=== PATIENT | male | born 1960 | race Caucasian/White ===

== ENCOUNTER 2018-10-23 15:22 | Inpatient (IN) ==
[2018-10-23] MEDS ORDERED: LABETALOL IV ONE (16:36)
[2018-10-23] MEDS ORDERED: APRESOLINE IV ONE (16:36)
[2018-10-23 17:03] LABS: BASO# 0.12 X1000 (0.0-0.2); BASO% 1.1 % (0.0-0.8); HEMOGLOBIN 15.3 g/dL (14.0-18.0); IMM GRAN# 0.03 X1000 (0.0-0.04); IMM GRAN% 0.3 % (0.0-0.5); LYMPH# 4.48 X1000 (1.2-3.4); LYMPH% 39.9 % (20.5-51.1); MCH 30.5 PG (27-31); MCV 89.6 FL (81-99); MONO# 0.69 X1000 (0.11-0.59); MONO% 6.1 % (1.7-9.3); MPV 12.3 FL (7.4-10.4); NEUT# 5.01 X1000 (1.4-6.5); NEUT% 44.6 % (42.2-75.2); PLT 151 X1000 (130-400); RBC 5.02 XMIL (4.7-6.1); RDW 14.7 % (11.5-14.5); WBC 11.23 X1000 (4.8-10.8)
[2018-10-23 17:18] LABS: AGAP 11; ALB/GLOB RATIO 1.9; ALBUMIN 4.6 g/dL (3.5-5.0); ALKALINE PHOSPHATASE 89 U/L (32-122); BUN 16 mg/dL (8-22); CHLORIDE 102 mmol/L (98-107); COSMO 269; ESTIMATED GFR > 60; GLUCOSE 83 mg/dL (70-104); GOT 17 U/L (10-34); GPT 10 U/L (10-44); POTASSIUM 4.5 mmol/L (3.5-5.1); SODIUM 134 mmol/L (136-145); TCO2 21 mmol/L (25-35); TOTAL BILIRUBIN 0.38 mg/dL (0.20-1.00)
[2018-10-23] MEDS ORDERED: NORCO-10 PO ONE (18:21)
[2018-10-23] MEDS ORDERED: CATAPRES PO ONE (18:21)
--- NOTE | 2018-10-23 18:23 | PROVIDER DOCUMENTATION ---
This chart was entered by Miriam Arias Scribe, acting as scribe for Rick Figueroa MD. HPI-General Adult - General Chief Complaint: B/P Problems Stated Complaint: HIGH BP Time Seen by Provider: 10/23/18 16:11 Source: patient, family (sister) Allergies/Adverse Reactions: Patient Allergies Allergy/AdvReac Type Severity Reaction Status Date / Time No Known Allergies Allergy Verified 10/23/18 15:54 Home Medications: Home Medication List Medication Instructions Recorded Confirmed Last Taken Type Albuterol Sulfate [Albuterol 10/23/18 Unknown History Sulfate Hfa] Alprazolam 10/23/18 10/22/18 History Citalopram [Celexa] 10/23/18 10/23/18 History Fluticasone 50 Mcg Nasal [place] 10/23/18 10/22/18 History [Flonase] Hydrocodone/APAP 10 mg/325 mg 10/23/18 10/22/18 History [[place]-10] LISINOpril [Prinivil] 10/23/18 10/23/18 History Quetiapine Fumarate 10/23/18 10/22/18 History Silodosin 10/23/18 10/22/18 History - History of Present Illness -Gen Adult Nature of Presenting Problems: 58 yowf presents to the ed with c/o elevated BP 217/135 this morning and still elevated on exam. pt has taken 120mg of Lisinopril since 0800am this morning. pt sts was seen yesterday at [facility] and still BP is elevated. pt on exam is anxious and tearful and sts "I just feel bad" Location of Pain/Injury: reports: generalized ("just feel bad") Quality of Pain: reports: aching Severity: reports: mild Onset/Duration: reports: 24 hours ago Timing: reports: still present Context/Activities at Onset: reports: light activity Modifying Factors: improves with: nothing Associated Symptoms: reports: fatigue, malaise. denies: back/neck pain, chest pain, cough, diaphoresis, diarrhea, dizziness, fever/chills, muscle aches, nausea, shortness of breath, syncope, vomiting, weakness Similar Symptoms Previously?: Yes (takes med for HTN) Recently seen or treated by another doctor?: Yes (susi ed yesterday) Review of Systems - Adult - REVIEW OF SYSTEMS - ADULT Constitutional: reports: see SPIKE esperanza Eyes: reports: no symptoms reported Ears, Nose, Mouth & Throat: reports: no symptoms reported Cardiovascular: denies: chest pain, palpitations Respiratory: denies: cough, shortness of breath, wheezing Gastrointestinal: denies: abdominal pain, diarrhea, nausea, vomiting Genitourinary: reports: no symptoms reported Musculoskeletal: denies: back pain, neck pain Integumentary: reports: no symptoms reported Neurological: denies: dizziness/vertigo, headache/migraines Psychiatric: reports: no symptoms reported Endocrine: reports: no symptoms reported Hematologic/Lymphatic: reports: no symptoms reported Allergic/Immunologic: reports: no symptoms reported All Other Systems: Reviewed and Negative Past History - Adult - PAST MEDICAL HISTORY-ADULT Review of Records: reports: Nursing Assessment Review, Medications Reviewed Major Childhood Illnesses: reports: other (Hep C) Cardiovascular: reports: HTN, hyperlipidemia Respiratory: reports: denies history Gastrointestinal: reports: denies history Genitourinary: reports: kidney disease, other (enlarged prostate) Musculoskeletal: reports: chronic pain, other (cervical fusion) Neurological: reports: denies history Psychiatric: reports: depression Endocrine/Immune: reports: denies history Other Conditions: reports: denies history - PRIOR SURGERIES/PROCEDURES Surgical/Procedure History: reports: joint replacement - IMMUNIZATION STATUS Childhood Immunizations: See Nurse Assessment Flu Vaccine: See Nurse Assessment - FAMILY HISTORY Family History: reviewed, not pertinent - SOCIAL HISTORY Smoking: cigarettes, greater than 1 pack/day Provider spent 3-5 mins advising pt. on dangers of tobacco.: Discussed manners to quit use, and f/u contacts for add'l counseling. Substance Use: denies Alcohol Use Frequency: never Living Situation: family Physical Exam-General - PHYSICAL EXAM-ADULT Exam Limited by: BP 223/139 Initial Vital Signs Reviewed: Yes - CONSTITUTIONAL General Appearance: appears well, alert, no apparent distress, obese, anxious - EYES Eyes: PERRL/EOMI, pink conjunctivae - HEAD, EARS, NOSE, MOUTH & THROAT HENMT: moist mucous membranes, TMs normal, other (no teeth) - NECK Neck: non-tender, full range of motion, normal inspection - RESPIRATORY Respiratory: chest non-tender, lungs clear, normal breath sounds - CARDIOVASCULAR Cardiovascular: normal peripheral pulses, regular rate, rhythm - GASTROINTESTINAL (ABDOMEN) Abdominal Exam: normal bowel sounds, non tender, soft, no organomegaly, no pulsatile mass - LYMPHATIC Lymphatic: no adenopathy - MUSCULOSKELETAL Back Exam: normal inspection, no CVA tenderness, no vertebral tenderness Extremity: normal range of motion, non-tender, normal gait, normal inspection, no pedal edema, no calf tenderness, normal capillary refill, pelvis stable, other (well healed scar on left knee) - SKIN Integumentary: normal color, normal turgor, warm/dry - NEUROLOGIC Neurologic: grossly normal, no motor/sensory deficits - PSYCHIATRIC Psych/Mental Status: normal mood/affect, normal thought content, normal thought process, oriented x 3, anxious Progress - PLAN OF CARE/RESULTS Progress/Plan/Lab Results: Vital Signs - 8 hr 10/23/18 15:31 Temperature 97.8 F Pulse Rate 74 Respiratory Rate 20 Blood Pressure 223/139 O2 Sat by Pulse Oximetry 97 Orders Category Date Time Status EKG [EKG] Stat Ther 10/23/18 15:26 Ordered Result Diagrams: 10/23/18 16:15 10/23/18 16:15 - REASSESSMENT Reassessment #1 Time Reassessed: 18:22 Status: improving (BP much improved; contrary to his report his renal fx is normal. pt insisting upon [place] 10 for his TALAMANTES, states he takes them tid. will give this, oral Clonidine, d/c for PCP fu.) - EKG 1 Time of EKG reading by physician:: 15:27 EKG Read and Signed by:: Rick Figueroa EKG Interpretation (*Must complete 3 of following elements*): Abnormal Rate: 72 Rhythm: nsr Irons: normal QRS: RBB (incomplete) NC Interval: normal ST Wave: normal Comments: septal infarct, ageundetermined Departure - Departure Date of Disposition Decision: 10/23/18 Time of Disposition Decision: 18:23 DIAGNOSIS: Hypertensive urgency, Tobacco use disorder Disposition: HOME 01 Certified Medical Emergency: Emergent Condition: Stable Referrals and Follow-Ups: None,PCP [Primary Care Provider] - - Critical Care Note This patient required my direct & personal management of CC.: Yes Total Time (mins): 34 Critical Care Statement: This patient required my direct personal management to treat or rule out processes, the absence of which, could potentiallly result in sudden, clinically significant life or limb threatening deterioration. Attestation - Physician/ RAMIN Attestation Patient care was provided by Advanced Practice Provider:: No The physician spent face to face time with patient:: Yes Advanced Practice Provider documentation review:: Supervising physician onsite and consulted in the evaluation and care of this patient. The physician did have a face to face encounter with the patient. This chart was documented by the indicated scribe, (Miriam Arias Scribe) and accurately reflects the services I performed and decisions made by me, Rick Figueroa MD, as attested by the provider's signature.
[2018-10-23] MEDS ORDERED: DILAUDID IV ONE (20:36)
[2018-10-23] MEDS ORDERED: ZOFRAN IV ONE (20:37)
[2018-10-23] MEDS ORDERED: NICODERM PATCH TD ONE (22:10)
[2018-10-23] MEDS ORDERED: NS 1,000 ML IV ONE (22:13)
[2018-10-23] MEDS ORDERED: NITROGLYCERIN TOP SCH (23:26)
[2018-10-23] MEDS ORDERED: TYLENOL PO PRN (23:26)
[2018-10-23] MEDS ORDERED: FLONASE NAS PRN (23:26)
[2018-10-23] MEDS ORDERED: ZOFRAN IV PRN (23:26)
[2018-10-23] MEDS ORDERED: VENTOLIN HFA INH PRN (23:26)
--- NOTE | 2018-10-23 23:41 | HISTORY AND PHYSICAL ---
PRIMARY CARE PHYSICIAN: No primary care physician. REASON FOR ADMISSION: Lightheadedness with chest pain. HISTORY OF PRESENT ILLNESS: Mr. Adrian Carrillo is a 58-year-old man with past medical of hepatitis C, hypertension, who comes in today complaining of palpitations, lightheadedness and almost passing out. He also had some nausea with some longstanding chest pain, he says. He said the chest pain feels like his chest is bloated and has been coming on and off for the last 1 year. Today, he was seen in the ER at [facility] for elevated blood pressure which he noticed yesterday after using a family member's blood pressure machine. His blood pressure at that time was 200/117 and went to the ER and was given lisinopril 20 mg. He today woke up with elevated blood pressure in the 180 systolic range and has taken a total of 6 tablets of lisinopril without any change in his blood pressure. Also noted that he was having palpitations with this which he has never had before and decided to get this checked. His vital signs on arrival, blood pressure 174/112, heart rate 60, respirations 12, temperature is 98 degrees. He is 94% on room air. He admits to having some mild shortness of breath prior to coming to the hospital. Denies any leg swelling, PND or orthopnea. No extremity redness or pain. No fever, chills, cough. No GI or complaints. There are no focal neurological complaints. REVIEW OF SYSTEMS: Twelve system review was done. Positive findings per HPI. ALLERGIES: None. MEDICATION: Only lisinopril 20 mg daily for now and some Xanax 1 tablet daily, Celexa 40 mg q.a.m., and Seroquel 20 mg at bedtime, albuterol 2 puffs q.6, silodosin, and [place] 10 q.8, Flonase 2 puffs daily. PAST MEDICAL HISTORY: BPH, COPD, hypertension. The patient has coronary artery disease and he did inform us that he did have 50% blockage in 1 of the arteries and also has a history of high cholesterol. SURGICAL HISTORY: Had knee surgery, neck surgery, nasal endoscopic surgery. FAMILY HISTORY: Only notable for heart disease. No diabetes. SOCIAL HISTORY: Smokes 1 pack a day and drinks 2 beers maybe once a month. No illicit drug use. Lives alone. LABORATORY WORK: White count is 11,000, hemoglobin and hematocrit 15 and 45, platelets 151,000 with normal differential. Sodium is 134, BUN 16, creatinine 1.0. Troponin is negative. Chest film is pending. EKG showed incomplete right bundle branch block, normal sinus rhythm. PHYSICAL EXAMINATION: GENERAL: Middle-aged man who is not in acute distress. He is A and O x3 with normal mood and affect. HEENT: Head is normocephalic, atraumatic. Eyes, CHAITANYA, EOMI. He is anicteric, not pale. ENT exam is grossly normal. No central cyanosis. VITAL SIGNS: Please refer to HPI above. NECK: Supple. No JVD, or carotid bruit, thyromegaly. CHEST: Clear when auscultated with decreased entry both lung saba. CARDIOVASCULAR: First and second heart sounds are heard but distant. I cannot appreciate any murmurs or rubs. Rhythm is regular. ABDOMEN: Slightly protuberant, soft. No tenderness, megaly. Bowel sounds normal. RECTAL: Exam deferred. EXTREMITIES: Good distal pulses which are regular. Good volume distal pulses and regular in all extremities. They are also symmetrical. No edema, clubbing or cyanosis. NEUROLOGICAL: No gross focal deficits. SKIN: Intact with no breakdown, lesion, erythema. MUSCULOSKELETAL: Exam is grossly normal. ASSESSMENT: 1. Chest pain syndrome in a patient with documented coronary artery disease. 2. Coronary artery disease. 3. Uncontrolled hypertension. 4. Benign prostatic hypertrophy. 5. Chronic obstructive pulmonary disease. 6. Tobacco use. 7. Hepatitis C, appears to be stable. This can be addressed at a later point in time if this has not been treated. 8. Chronic pain syndrome. Patient will continue home medications. PLAN: Patient will be admitted for further cardiovascular workup for chest pain which has been ongoing. Statins, aspirin and antihypertensives will be ordered. EKG in the morning will be ordered. I will switch patient to Cardura for blood pressure control being that the medication he takes for BPH, silodosin, is not a potent alpha 2 sailaja which can control blood pressure. Other medications we added to his regimen will include Norvasc and Coreg. I would strongly recommend following patient's BMP in the morning and because patient took 120 mg of lisinopril this might put him at risk for eventual BAILEE. In the interim, I will also start the patient on some fluids to head this off. For pain control and for blood pressure control, start patient on nitroglycerin paste. Echocardiogram will be ordered and I will defer to dental assisting instructor, Dr. Prado, who is position classification manager to address any further plans for workup. Smoking cessation was discussed. Patient is somewhat ambivalent to quitting smoking. cc: Kar Bergman MD
[2018-10-24] MEDS: COREG PO SCH ×3 (01:33→20:13)
[2018-10-24] MEDS: LIPITOR PO SCH ×2 (01:33→20:12)
[2018-10-24] MEDS: LOVENOX SUBQ SCH ×2 (01:33→23:22)
[2018-10-24] MEDS: SEROQUEL PO SCH ×2 (01:33→20:12)
[2018-10-24] MEDS: NORCO-10 PO PRN ×3 (01:36→20:13)
[2018-10-24] MEDS: NICODERM PATCH TD SCH ×2 (01:37→10:01)
[2018-10-24] MEDS ORDERED: NS 1,000 ML ONE (03:31)
[2018-10-24] MEDS ORDERED: NS 500 ML IV ONE (04:02)
[2018-10-24 05:34] LABS: BASO# 0.06 X1000 (0.0-0.2); BASO% 0.6 % (0.0-0.8); EOS# 0.68 X1000 (0.0-0.7); HEMATOCRIT 43.4 % (42.0-52.0); HEMOGLOBIN 14.2 g/dL (14.0-18.0); IMM GRAN# 0.02 X1000 (0.0-0.04); IMM GRAN% 0.2 % (0.0-0.5); LYMPH# 3.71 X1000 (1.2-3.4); MCH 29.8 PG (27-31); MCHC 32.7 g/dL (33-37); MONO# 0.69 X1000 (0.11-0.59); MONO% 7.1 % (1.7-9.3); MPV 11.3 FL (7.4-10.4); NEUT# 4.61 X1000 (1.4-6.5); NEUT% 47.1 % (42.2-75.2); PLT 132 X1000 (130-400); RBC 4.77 XMIL (4.7-6.1); RDW 14.9 % (11.5-14.5); WBC 9.77 X1000 (4.8-10.8)
[2018-10-24 06:07] LABS: HEMOGLOBIN A1C 5.1 % (4.8-6.0)
[2018-10-24 06:21] LABS: AGAP 10; ALB/GLOB RATIO 1.7; ALKALINE PHOSPHATASE 76 U/L (32-122); BUN 19 mg/dL (8-22); CALCIUM 8.7 mg/dL (8.8-10.2); CHLORIDE 108 mmol/L (98-107); CHOLESTEROL 134 mg/dL (0-200); COSMO 284; CREATININE 1.1 mg/dL (0.7-1.2); ESTIMATED GFR > 60; GLUCOSE 99 mg/dL (70-104); GOT 11 U/L (10-34); GPT 8 U/L (10-44); HDL 29 mg/dL (35-55); LDL 80 mg/dL; POTASSIUM 4.4 mmol/L (3.5-5.1); SODIUM 141 mmol/L (136-145); TCO2 23 mmol/L (25-35); TOTAL BILIRUBIN 0.67 mg/dL (0.20-1.00); TOTAL PROTEIN 6.4 g/dL (6.3-8.3); TRIGLYCERIDES 123 mg/dL (39-160); VLDL 25 mg/dL
--- NOTE | 2018-10-24 06:35 | Diag Imaging Result Doc PS360 ---
EXAM: CHEST-2 VIEWS HISTORY: chest pain TECHNIQUE: Chest two views COMPARISON: None. FINDINGS: The lungs are well expanded. The heart is not enlarged. The vessels are not distended. There are no infiltrates. No pleural effusions. There has been surgery to the lower neck. IMPRESSION: No acute abnormality. Electronically signed by Juan J Abreu 10/24/2018 6:33 AM
[2018-10-24] MEDS: CELEXA PO SCH (10:02)
[2018-10-24] MEDS: ASPIRIN EC PO SCH (10:02)
[2018-10-24] MEDS: CARDURA PO SCH (10:02)
[2018-10-24] MEDS: PRINIVIL PO SCH (10:02)
[2018-10-24] MEDS: NORVASC PO SCH (10:02)
--- NOTE | 2018-10-24 13:15 | PROGRESS NOTE ---
DATE: 10/24/2018 SUBJECTIVE: This morning, Mr. Carrillo refers to be doing a whole lot better. He said the chest discomfort and the difficulty breathing has resolved this morning. His blood pressure has also normalized. OBJECTIVE: Vital Signs: Blood pressure is 138/90, pulse is 63, respirations 18, temperature is 98.5 degrees, the patient is saturating 96% on room air. General: Mr. Carrillo is a 58-year-old gentleman. He was in bed. He did not seem to be in any cardiopulmonary distress. HEENT: Mucosa is pink and moist. Anicteric. Acyanotic. Neck: Supple. Chest: Air entry is bilaterally reduced, but there are no crepitations, no rhonchi. Cardiovascular: Regular rate and rhythm. No murmurs, no rubs, no gallops. GI: Abdomen is soft, nontender. Bowel sounds present. Extremities: No pedal edema. Distal pulses present. Musculoskeletal: There are bilateral scars on the knees, suggestive of knee surgery. There is also a scar on the cervical spine. LABORATORY DATA: WBC is 9.77, hemoglobin is 14.2, platelet count of 132,000. Chemistry is also reviewed and is completely unremarkable. CURRENT MEDICATIONS: Have all been reviewed. ASSESSMENT: 1. Chest pain with features, which are concerning for atherosclerotic coronary artery disease. The patient is pending echocardiogram and stress test tomorrow. So far, troponins and electrocardiograms have ruled out any myocardial infarction. 2. Uncontrolled hypertension on presentation with symptoms that could suggest hypertensive emergency. Blood pressure has improved, and the associated symptoms have also normalized. For now, will continue with the current antihypertensive medications, including amlodipine 5 mg daily, carvedilol 6.25 b.i.d., Cardura 2 mg daily, lisinopril 20 mg daily. Blood pressure seems to be a lot better on these agents. If there is the need for any further agents, I will recommend a diuretic. 3. History of tobacco abuse. The patient has been counseled. 4. Chronic pain syndrome. Noted. In general, Mr. Carrillo refers to be doing a whole lot better this morning. His blood pressures have also been remarkably controlled. We are going to continue with the current antihypertensive medications, and we will do a stress and echocardiogram for cardiac risk stratification. Cardiology has been consulted. If his stress and echocardiogram are normal, I think Mr. Carrillo can be discharged on the current antihypertensive medications, and let him follow up with his primary care physician, Dr. Santiago. cc: Grant Méndez MD
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
[2018-10-24] MEDS: XANAX PO PRN (20:13)
[2018-10-25 07:48] LABS: AGAP 8; BUN 18 mg/dL (8-22); CALCIUM 8.7 mg/dL (8.8-10.2); CHLORIDE 109 mmol/L (98-107); COSMO 277; CREATININE 1.1 mg/dL (0.7-1.2); ESTIMATED GFR > 60; GLUCOSE 86 mg/dL (70-104); PHOSPHORUS 2.4 mg/dL (2.7-4.5); POTASSIUM 4.3 mmol/L (3.5-5.1); SODIUM 138 mmol/L (136-145); TCO2 21 mmol/L (25-35)
[2018-10-25] MEDS: NORCO-10 PO PRN ×2 (07:57→19:16)
[2018-10-25] MEDS ORDERED: LEXISCAN ONE (08:23)
--- NOTE | 2018-10-25 08:38 | EKG Report ---
Test Performed on : 10/23/2018 3:27:52 PM Test Reason : bp/sob Blood Pressure : / mmHG Vent. Rate : 072 BPM Atrial Rate : 072 BPM P-R Int : 154 ms QRS Dur : 098 ms QT Int : 380 ms P-R-T Axes : -07 011 031 degrees QTc Int : 416 ms Normal sinus rhythm. Incomplete right bundle branch block Septal infarct (cited on or before 28-SEP-2009) Abnormal ECG When compared with ECG of 15-OCT-2009 14:52, Questionable change in initial forces of Septal leads Unconfirmed Result
[2018-10-25] MEDS: CARDURA PO SCH (11:22)
[2018-10-25] MEDS: ASPIRIN EC PO SCH (11:22)
[2018-10-25] MEDS: PRINIVIL PO SCH (11:24)
[2018-10-25] MEDS: COREG PO SCH ×2 (11:24→20:25)
[2018-10-25] MEDS: NICODERM PATCH TD SCH (11:24)
[2018-10-25] MEDS: CELEXA PO SCH (11:24)
[2018-10-25] MEDS: NORVASC PO SCH (11:24)
--- NOTE | 2018-10-25 13:15 | PROGRESS NOTE ---
DATE: 10/25/2018 SUBJECTIVE: Patient reports feeling fine. Chest pain is gone completely. OBJECTIVE: Vital Signs: Temperature 98.0 degrees, heart rate 90, respiratory rate 16, blood pressure 119/69, O2 saturation 100% on room air. General Examination: This is a 58-year-old male, lying in bed, in no acute distress. Cardiovascular: S1, S2 heard. No murmurs, gallops, or rubs. Regular rate and rhythm. Respiratory: Clear bilaterally to auscultation. No work of breathing or using accessory muscles. Abdomen is soft, nontender to palpation. Bowel sounds present. No organomegaly. Extremities: No clubbing, cyanosis, or edema. Peripheral pulses present in both legs. Neurological: The patient is alert, oriented x3. Moves all 4 extremities. LABORATORY DATA: Reviewed. ASSESSMENT AND PLAN: 1. Atypical chest pain. The patient has had his Lexiscan stress test this morning, at this point awaiting results. Clinically, patient is doing fine with no more episodes of chest pain or chest discomfort since this patient is here in the hospital. 2. Uncontrolled hypertension on presentation. The patient has been started on carvedilol, Cardura, lisinopril, and so far blood pressure is much better. This morning it was 119. At this point, we will continue with same management. 3. History of tobacco abuse. Patient has been counseled to stop abusing tobacco. 4. Chronic pain syndrome. Noted. DISPOSITION: At this point, we are waiting for results of stress test, and if those are normal, patient can be discharged. cc: Oc Orellana MD
--- NOTE | 2018-10-25 17:47 | PROGRESS NOTE ---
DATE: 10/25/2018 SUBJECTIVE: Patient continues without further chest symptoms and denies shortness of breath. OBJECTIVE: Vital Signs: Blood pressure 147/83, heart rate 62 and regular, oxygen saturation 97% on room air. There is no significant jugular distention. Chest: Clear to auscultation. Cardiac: Regular rate and rhythm without appreciable murmur or gallop. There is no evidence of peripheral edema. Myocardial perfusion study is normal. IMPRESSION: 1. Recent chest symptoms with mixed features, but predominantly atypical for myocardial ischemia. Myocardial perfusion imaging is normal, suggesting noncardiac etiology. I suspect his symptoms may very well be related to his chronic obstructive pulmonary disease. 2. Hypertension. 3. Chronic obstructive pulmonary disease. 4. Peripheral artery disease with atherosclerotic carotid disease. 5. Chronic cigarette use. RECOMMENDATIONS: 1. Continue aspirin p.o. daily. 2. Continue current antihypertensive/cardiovascular regimen. 3. Smoking cessation strongly advised. 4. Reasonable for patient to be discharged to home. cc: Praneeth Meredith MD
[2018-10-25] MEDS: XANAX PO PRN (20:25)
[2018-10-25] MEDS: SEROQUEL PO SCH (20:25)
[2018-10-25] MEDS: LIPITOR PO SCH (20:25)
[2018-10-26] MEDS: LOVENOX SUBQ SCH (00:03)
[2018-10-26 07:30] VITALS: BP 123/80
[2018-10-26] MEDS: NORVASC PO SCH (08:09)
[2018-10-26] MEDS: NICODERM PATCH TD SCH (08:09)
[2018-10-26] MEDS: CARDURA PO SCH (08:09)
[2018-10-26] MEDS: PRINIVIL PO SCH (08:09)
[2018-10-26] MEDS: ASPIRIN EC PO SCH (08:10)
[2018-10-26] MEDS: NORCO-10 PO PRN (08:10)
[2018-10-26] MEDS: COREG PO SCH (08:10)
[2018-10-26] MEDS: CELEXA PO SCH (08:10)
[2018-10-26] MEDS ORDERED: PNEUMOVAX 23 IM ONE (11:13)
--- NOTE | 2018-10-26 14:36 | DISCHARGE SUMMARY ---
ADMISSION DATE: 10/23/2018 DISCHARGE DATE: 10/26/2018 DISPOSITION: Home. FOLLOWUP: 1. Follow-up will Dr. Santiago in [facility]. 2. Dr. Prado. CONSULTATION DURING THIS ADMISSION: Cardiology was consulted. Patient was seen by Dr. Prado. INVASIVE PROCEDURE DONE DURING ADMISSION: None IMAGING STUDIES OF SIGNIFICANCE: 1. A chest x-ray was initially done which showed no abnormality. 2. A myocardial perfusion scan was done which showed unremarkable study. ADMISSION DIAGNOSES: 1. Chest pain syndrome. 2. History of coronary artery disease. 3. Uncontrolled hypertension. 4. Chronic obstructive pulmonary disease. 5. Hepatitis C. 6. Chest chronic pain syndrome. DIAGNOSES AT THE TIME OF DISCHARGE: 1. Chest pain, likely secondary to hypertensive induced precordialgia. This has normalized and improved as blood pressure has also been controlled. The patient troponins were all negative. EKG showed no changes. A stress test which was done was also unremarkable. 2. Uncontrolled hypertension on presentation, improved. 3. History of tobacco abuse. 4. Chronic obstructive pulmonary disease. Currently not in exacerbation. 5. Chronic pain syndrome. DISCHARGE MEDICATIONS: 1. Lisinopril 20 mg daily. 2. Albuterol inhaler p.r.n. 3. Quetiapine 200 mg at bedtime. 4. Citalopram 40 mg q.a.m. 5. Flonase. 6. Atorvastatin 40 mg p.o. at bedtime. 7. Cardura 2 mg p.o. daily. 8. Coreg 6.25 b.i.d. 9. Amlodipine 5 mg p.o. daily. PRESENTING COMPLAINT: Lightheadedness and chest pain. HISTORY OF PRESENTING COMPLAINT: Mr. Carrillo is a 58-year-old gentleman who has a history of hypertension, chronic obstructive pulmonary disease, and some coronary artery disease in the past. The patient presented because of chest discomfort and lightheadedness. Upon presentation, patient was found to have a blood pressure of 223/139. It was presumed that his symptoms were all related to the elevated blood pressure. He was treated emergently in the emergency in the ER and subsequently admitted. HOSPITAL COURSE: Mr. Carrillo continues to improve. Chest discomfort resolved as blood pressure got better control. His troponins were trended 4 times, were all negative. EKG did not show any changes. Cardiology was consulted and a stress test was done which was also done completely normal. This morning Mr. Carrillo refers to be doing a whole lot better. Chest pain has completely resolved and no new symptoms. He is therefore in stable condition to be discharged. He is going to follow up with his primary care doctor and also with Cardiology. There have been addition of antihypertensive medications to his medications and we have addressed all of this with him. He voiced understanding. All the discharge instructions have been discussed with him. Discharge time is 37 minutes. cc: Grant Méndez MD [facility] Praneeth Meredith MD
--- NOTE | 2018-10-28 09:12 | Diag Imaging Result Document ---
PROCEDURE NAME: MYOCARDIAL PERF SCAN, STR/REST - 10/25/2018 STUDY: Rest/stress Lexiscan myocardial perfusion stress test. INDICATION: Chest pain. DESCRIPTION: The patient came into the nuclear laboratory, received resting injection of technetium 99 sestamibi 14.9 mCi. Multiple tomographic views of the cardiac structure were obtained at rest. Subsequently, the patient underwent Lexiscan infusion of 0.4 mg. At peak infusion, he was injected with technetium 99 sestamibi 41.9 mCi. Multiple tomographic views of the cardiac structures were obtained following the completion of the protocol. SUMMARY OF THE MYOCARDIAL PERFUSION PORTION OF THE STUDY: The ECG portion was already reported, job number is [id number]. Poststress tomographic views of the left ventricle showed normal homogeneous distribution of radiotracer throughout the entire left ventricular myocardium. There is no evidence of any postexercise defect. The rest images showed normal perfusion. Polar plots revealed the same. There is no evidence of any inducible ischemia nor myocardial scar. Gated SPECT shows normal left ventricular systolic function. Ejection fraction is estimated at 64%. Ventricular volumes are normal. The lung/heart ratio is normal at 0.42. TID is 1.14. SUMMARY: This study shows: 1. Essentially normal poststress myocardial perfusion scan. There is no scintigraphic evidence of Lexiscan or pharmacologically induced myocardial ischemia. 2. Normal left ventricular systolic function, ejection fraction estimated at 64%. Normal ventricular volumes. No wall motion abnormality. This study represents low risk for ischemic events. cc: MD Grant Culp MD
--- NOTE | 2018-10-28 09:12 | GRADED EXERCISE REPORT ---
[facility] REPORT - 10/25/2018 INDICATION: Chest pain. DESCRIPTION OF PROCEDURE: Resting ECG shows sinus rhythm, rate 65 beats per minute. Resting blood pressure is 151/99. Resting ECG shows possible septal scar. During the infusion of Lexiscan, the heart rate increased to a maximum of 105 beats per minute. Blood pressure dropped to 130/77. The patient reported dyspnea and some significant chest pain of 8/10 in severity. There were no ischemic ST-T changes. Peak infusion ECG shows sinus tachycardia. Following the completion of the test, heart rate and blood pressure returned back to baseline. CONCLUSIONS: In summary, the electrocardiographic response to infusion of Lexiscan is deemed to be unremarkable. Correlation would have to be made with nuclear imaging portion of the test. cc: Keon Franco MD
== END 2018-10-26 12:00 | disposition home or self-care (01) | DRG 305 ==
LOC: ED 15:22 → SUATTDRO 23:50 → 4N 23:50
PROVIDERS: ATTEND Internal Medicine
CPT/HCPCS: 71020; 71046; 78452; 80053; 80061; 80069; 82550; 83036; 84443; 84484; 85025; 90732; 93005; 93017; 93306; 96374; 96375; 99285; 99291; A9270; A9500; J0360; J1170; J1650; J2405; J2785; J7030; J7040